=== PATIENT | female | born 1985 | race American Indian/Alaskan Native ===

== ENCOUNTER 2021-01-01 05:58 | Day surgery (SDC) | payer OTHER ==
--- NOTE | 2020-12-31 22:06 | Short Stay Summary ---
Short Stay Documentation Date of service: 01/01/21 Narrative H&P: 35y/o with findings of multiple uterine fibroids and retained IUD that was unable to be removed in the office. The patient desires placement of a paraguard IUD Patient has been reassessed/reevaluated/re-examined. H&P has been reviewed. No interval changes. - History Principal diagnosis: retained IUD Past Medical History: other (leiomyomas) Past Surgical History: Social history: single - Allergies and Medications Current Medications: Allergies No Known Allergies Allergy (Unverified 12/27/20 09:54) Home Medications Medication Instructions Recorded Confirmed Last Taken Type No Known Home Medications [No 12/27/20 12/27/20 Unknown History Reported Home Medications] Active Medications Lactated Ringer's (Lactated Ringers) 1,000 mls @ 125 mls/hr IV DIRECT KAREN - Physical exam General appearance: no acute distress Integumentary: no rash HEENT: Atraumatic Lungs: Clear to auscultation Breasts: deferred Heart: Regular rate Gastrointestinal: normal Female Genitourinary: deferred Rectal Exam: deferred - Brief post op/procedure progress note Date of procedure: 01/01/21 Pre-op diagnosis: Retained IUD Post-op diagnosis: same Procedure: Hysteroscopy Removal of IUD Placement of ParaGard IUD Anesthesia: MAC Surgeon: TIFFANY PHELAN Estimated blood loss: minimal Pathology: list (Intrauterine device) Specimen disposition: to lab Condition: stable - Hospital course Hospital course: The patient was admitted the day of surgery and underwent a hysteroscopy, removal of IUD, and placement of new ParaGard IUD. Please see operative note for details of surgery. Her postoperative course was uneventful. - Disposition Condition at discharge: Good Disposition: DC-01 TO HOME OR SELFCARE - Discharge Diagnoses (1) IUD complication Status: Acute Short Stay Discharge Plan Activity: no restrictions Additional Instructions: Follow-up is not required Follow-up as needed
[2021-01-01] MEDS ORDERED: LACTATED RINGERS 1,000 ML IV SCH (06:00)
--- NOTE | 2021-01-01 06:58 | Anesthesia Consultation ---
Anesthesia Consult and Med Hx Date of service: 01/01/21 - Airway Anesthetic Teeth Evaluation: Good ROM Head & Neck: Adequate Mental/Hyoid Distance: Adequate Mallampati Class: Class II Intubation Access Assessment: Good - Pulmonary Exam CTA: Yes - Cardiac Exam Cardiac Exam: RRR - Pre-Operative Health Status ASA Pre-Surgery Classification: ASA1 Proposed Anesthetic Plan: General - Central Nervous System Hx Psychiatric Problems: No - Other Systems Hx Alcohol Use: Yes (Occas) Hx Cancer: No
--- NOTE | 2021-01-01 06:58 | Anesthesia Day of Surgery ---
Anesthesia Day of Surgery - Day of Surgery Patient Examined: Yes Patient H&P Reviewed: Yes Patient is NPO: Yes
[2021-01-01] MEDS ORDERED: MIDAZOLAM 2 MG/2 ML INJ IV NR (07:00)
[2021-01-01] MEDS ORDERED: LIDOCAINE PF 100 MG/5 ML (CARDIAC SYRINGE) IV ONE (07:23)
[2021-01-01] MEDS ORDERED: fentaNYL 100 MCG/2 ML INJ ONE (07:24)
[2021-01-01] MEDS ORDERED: dexAMETHasone 20 MG/5 ML VIAL ONE (07:24)
[2021-01-01] MEDS ORDERED: propofoL 200 MG/20 ML VIAL IV ONE (07:24)
[2021-01-01] MEDS ORDERED: ONDANSETRON 4 MG/2 ML INJ ONE (07:24)
--- NOTE | 2021-01-01 08:12 | Operative Report ---
Operative Report Operative Report: Date of procedure: January 01, 2021 Pre-operative diagnosis: Retained IUD; uterine fibroids Post-operative diagnosis: Same as above Procedure name(s): Hysteroscopy, removal of IUD, placement of ParaGard IUD Surgeon: Sia Patricio M.D. Estimated blood loss: Minimal Anesthesia: LMA Findings Retained IUD in the uterine cavity, submucosal leiomyomas, Indication: 35-year-old -0-1-2 with a history of a retained IUD that was unable to be removed in the office. The patient has a known history of multiple uterine fibroids also. Procedure The patient is taken to the operating room and given LMA as anesthesia. She is prepped and draped in normal sterile fashion. A timeout was performed that confirmed the patient's name and the procedure. The patient was in this place and high lithotomy position. [place] speculum was placed in the patient's vagina single-tooth tenaculum placed on anterior lip of the cervix. Cervical os was then dilated with graduated dilators. Hysteroscope was then inserted. Upon visualization there was noted to be a retained IUD in the lower uterine segment. A grasper was used to remove the IUD without difficulty. The hysteroscope was then removed. The uterus was sounded approximately 12 cm. The ParaGard IUD was inserted to the dilated cervical os. The IUD string was trimmed to approximately 1 cm. The vaginal instruments were then removed atraumatically. The patient was then successfully extubated and taken to the recovery room in stable condition. All sponge laps and needle counts were correct x2.
[2021-01-01 09:19] VITALS: BP 106/61
--- NOTE | 2021-01-01 09:57 | Post Anesthesia Evaluation ---
- Post Anesthesia Evaluation Patient Participated: Yes Airway Patent: Yes Stable Respiratory Function: Yes Nausea/Vomiting: No Temp > 96.8F: Yes Pain Manageable: Yes Adequeate Hydration: Yes Anesthesia Complications: No Block Receding Appropriately: Not Applicable Patient on Ventilator: No
[2021-01-01] MEDS ORDERED: SODIUM CHLORIDE 0.9% IRRIG SOLN 2000 ML IR ONE (11:27)
== END 2021-01-01 05:59 | disposition home or self-care (01) ==
LOC: OR 05:58
PROVIDERS: ATTEND Obstetrics & Gynecology
DX: T83.39XA Other mechanical complication of intrauterine contraceptive device, initial encounter (principal); Z30.432 Encounter for removal of intrauterine contraceptive device; G43.909 Migraine, unspecified, not intractable, without status migrainosus; D25.9 Leiomyoma of uterus, unspecified; Z98.891 History of uterine scar from previous surgery; Z72.89 Other problems related to lifestyle; Z98.890 Other specified postprocedural states; Y82.8 Other medical devices associated with adverse incidents; Y92.89 Other specified places as the place of occurrence of the external cause
CPT/HCPCS: 58300; 58562; 81025; 88300; A4217; J1100; J2001; J2250; J2405; J2704; J3010; J7120; 88302